=== PATIENT | male | born 1935 | race Caucasian/White ===

== ENCOUNTER 2020-05-23 17:46 | Inpatient (IN) ==
[2020-05-23] MEDS ORDERED: ASPIRIN 325 MG TABLET PO STA (18:22)
[2020-05-23] MEDS ORDERED: ONDANSETRON 4 MG/2 ML VIAL IV STA (18:22)
[2020-05-23] MEDS ORDERED: SODIUM CHLORIDE 0.9% 500 ML IV STA (18:22)
[2020-05-23 18:31] LABS: Basophils # 0.1 10*3/uL (0.0-0.2); Eosinophils # 0.3 10*3/uL (0.0-0.87); Eosinophils % 4.1 % (0.00-10.9); Hematocrit 35.7 VOL% (42.0-52.0); Immature Granulocytes % 0.5 %; Immature Granulocytes Absolute 0.04 #; Lymphocytes # 2.6 10*3/uL (1.4-4.0); Lymphocytes % 32.7 % (21.2-54.2); Mean Corpuscular HGB Conc 33.6 GM/DL (32-36); Mean Corpuscular Volume 89.7 FL (87-102); Mean Platelet Volume 9.4 FL (9.6-12.0); Monocytes % 11.2 % (1.7-12.7); Neutrophils % 50.5 % (38.7-73.9); Platelet Count 169 T/CUMM (130-400); Red Blood Count 3.98 MC/CUMM (3.8-5.5); Red Cell Distribution Width 12.8 % (9.3-17.3); White Blood Count 7.8 T/CUMM (4-12)
[2020-05-23 18:40] LABS: PT Patient Result 10.3 SECS (9.8-11.9)
[2020-05-23 18:57] LABS: Bilirubin,Urine Negative (Negative); Blood, Urine Negative (Negative); Glucose,Urine (UA) Negative (Negative); Ketones,Urine Negative (Negative); Mucus,Urine Occasional /LPF (Occasional); Nitrite,Urine Negative (Negative); Protein,Urine Negative; RBC,Urine 1 /HPF (0-4); Urine Appearance CLEAR (Clear); Urine Color Yellow (Yellow); Urine Specific Gravity 1.013 (1.001-1.035); Urine Urobilinogen < 2.0 EU/DL (0.2-1.0); WBC,Urine 1 /HPF (0-6)
[2020-05-23 19:06] LABS: Alanine Aminotransferase 19 U/L (16-61); Albumin 2.5 G/DL (3.4-5.0); Alkaline Phosphatase 82 U/L (45-117); Aspartate Amino Transferase 50 U/L (0-37); Blood Urea Nitrogen 22 MG/DL (7-18); Calcium 8.3 MG/DL (8.5-10.1); Carbon Dioxide 24 MMOL/L (21-32); Estimated Glom Filtration Rate 81 ML/MIN; Glucose 96 MG/DL (74-106); Osmolality,Calculated 275.8 MOS/KG (273-304); Potassium 5.3 MMOL/L (3.5-5.1); Sodium 137 MMOL/L (136-145)
[2020-05-23 19:17] LABS: Barbiturates Screen,Urine Negative (Negative); Benzodiazepines Screen,Urine Negative (Negative); Cannabinoid Screen,Urine Negative (Negative); Opiate Screen,Urine Negative (Negative); Phencyclidine Screen,Urine Negative (Negative)
[2020-05-23] MEDS ORDERED: ACETAMINOPHEN 325 MG TABLET PO PRN (22:42)
[2020-05-23] MEDS ORDERED: MORPHINE 4 MG/1 ML VIAL IV PRN (22:42)
[2020-05-23] MEDS ORDERED: ONDANSETRON 4 MG/2 ML VIAL IV PRN (22:42)
[2020-05-23] MEDS: ENOXAPARIN 40 MG/0.4 ML SYRINGE SUBCUT SCH (23:03)
[2020-05-23] MEDS: DOCUSATE SODIUM 100 MG CAPSULE PO SCH (23:03)
[2020-05-23] MEDS: SODIUM CHLORIDE 0.9% 1,000 ML IV SCH (23:03)
[2020-05-24] MEDS: SODIUM CHLORIDE 0.9% 1,000 ML IV SCH ×3 (05:53→22:02)
[2020-05-24 06:08] LABS: Basophils # 0.1 10*3/uL (0.0-0.2); Basophils % 1.2 % (0.0-0.8); Eosinophils # 0.4 10*3/uL (0.0-0.87); Eosinophils % 5.5 % (0.00-10.9); Hemoglobin 11.7 GM/DL (14.0-18.0); Immature Granulocytes % 0.4 %; Immature Granulocytes Absolute 0.03 #; Lymphocytes # 2.5 10*3/uL (1.4-4.0); Lymphocytes % 36.5 % (21.2-54.2); Mean Corpuscular HGB Conc 34.4 GM/DL (32-36); Mean Corpuscular Volume 90.2 FL (87-102); Mean Platelet Volume 9.4 FL (9.6-12.0); Monocytes % 10.2 % (1.7-12.7); Neutrophils % 46.2 % (38.7-73.9); Platelet Count 147 T/CUMM (130-400); Red Blood Count 3.77 MC/CUMM (3.8-5.5); Red Cell Distribution Width 12.9 % (9.3-17.3); White Blood Count 6.9 T/CUMM (4-12)
[2020-05-24 06:31] LABS: Albumin 2.8 G/DL (3.4-5.0); Bilirubin,Total 0.9 MG/DL (0.2-1.0); Calcium 9.8 MG/DL (8.5-10.1); Osmolality,Calculated 275.8 MOS/KG (273-304); Potassium 4.4 MMOL/L (3.5-5.1); Risk Ratio 8.48; Total Protein 6.2 G/DL (5.0-7.5); VLDL CHOLESTEROL 76.6 MG/DL
[2020-05-24 08:14] LABS: Folate 11.5 NG/ML (5.38-24.0)
[2020-05-24] MEDS ORDERED: PANTOPRAZOLE 40 MG VIAL IV SCH (09:00)
[2020-05-24] MEDS: EZETIMIBE 10 MG TABLET PO SCH (09:52)
[2020-05-24] MEDS: PANTOPRAZOLE 40 MG TABLET PO SCH (09:52)
[2020-05-24] MEDS: MELOXICAM 7.5 MG TABLET PO SCH (09:52)
[2020-05-24] MEDS: DOCUSATE SODIUM 100 MG CAPSULE PO SCH ×2 (09:52→21:18)
[2020-05-24] MEDS: SERTRALINE 50 MG TABLET PO SCH (09:53)
[2020-05-24] MEDS: ASPIRIN EC 81 MG TABLET PO SCH (09:53)
[2020-05-24] MEDS: CETIRIZINE 10 MG TABLET PO SCH (09:53)
[2020-05-24] MEDS: ROSUVASTATIN 20 MG TABLET PO SCH (09:54)
[2020-05-24] MEDS ORDERED: DEXAMETHASONE 10 MG/1 ML VIAL IV ONE (14:05)
[2020-05-24] MEDS ORDERED: DEXAMETHASONE 10 MG/1 ML VIAL IV SCH (21:00)
[2020-05-24] MEDS: DEXAMETHASONE INJ 40 MG in SODIUM CHLORIDE 0.9% 50 ML IV SCH (21:18)
[2020-05-24] MEDS: ENOXAPARIN 40 MG/0.4 ML SYRINGE SUBCUT SCH (22:02)
[2020-05-25 05:21] LABS: Basophils % 0.2 % (0.0-0.8); Hematocrit 34.3 VOL% (42.0-52.0); Hemoglobin 11.8 GM/DL (14.0-18.0); Immature Granulocytes % 0.7 %; Immature Granulocytes Absolute 0.04 #; Lymphocytes # 0.8 10*3/uL (1.4-4.0); Lymphocytes % 14.3 % (21.2-54.2); Mean Corpuscular HGB Conc 34.4 GM/DL (32-36); Mean Corpuscular Volume 87.9 FL (87-102); Mean Platelet Volume 9.6 FL (9.6-12.0); Monocytes % 0.9 % (1.7-12.7); Neutrophils % 83.9 % (38.7-73.9); Platelet Count 175 T/CUMM (130-400); Red Cell Distribution Width 12.5 % (9.3-17.3); White Blood Count 5.7 T/CUMM (4-12)
[2020-05-25 05:45] LABS: Calcium 9.8 MG/DL (8.5-10.1); Potassium 4.5 MMOL/L (3.5-5.1)
[2020-05-25] MEDS: SODIUM CHLORIDE 0.9% 1,000 ML IV SCH ×2 (05:51→13:57)
[2020-05-25] MEDS: ROSUVASTATIN 20 MG TABLET PO SCH (09:02)
[2020-05-25] MEDS: ASPIRIN EC 81 MG TABLET PO SCH (09:02)
[2020-05-25] MEDS: DOCUSATE SODIUM 100 MG CAPSULE PO SCH ×2 (09:02→20:57)
[2020-05-25] MEDS: EZETIMIBE 10 MG TABLET PO SCH (09:02)
[2020-05-25] MEDS: PANTOPRAZOLE 40 MG TABLET PO SCH (09:02)
[2020-05-25] MEDS: SERTRALINE 50 MG TABLET PO SCH (09:02)
[2020-05-25] MEDS: MELOXICAM 7.5 MG TABLET PO SCH (09:02)
[2020-05-25] MEDS: CETIRIZINE 10 MG TABLET PO SCH (09:03)
[2020-05-25] MEDS: DEXAMETHASONE INJ 40 MG in SODIUM CHLORIDE 0.9% 50 ML IV SCH ×2 (09:03→20:57)
[2020-05-25] MEDS: ENOXAPARIN 40 MG/0.4 ML SYRINGE SUBCUT SCH (21:59)
[2020-05-26] MEDS: SODIUM CHLORIDE 0.9% 1,000 ML IV SCH ×4 (00:30→23:48)
[2020-05-26] MEDS: ASPIRIN EC 81 MG TABLET PO SCH (08:39)
[2020-05-26] MEDS: MELOXICAM 7.5 MG TABLET PO SCH (08:39)
[2020-05-26] MEDS: DOCUSATE SODIUM 100 MG CAPSULE PO SCH ×2 (08:39→20:04)
[2020-05-26] MEDS: ROSUVASTATIN 20 MG TABLET PO SCH (08:39)
[2020-05-26] MEDS: EZETIMIBE 10 MG TABLET PO SCH (08:40)
[2020-05-26] MEDS: CETIRIZINE 10 MG TABLET PO SCH (08:40)
[2020-05-26] MEDS: PANTOPRAZOLE 40 MG TABLET PO SCH (08:41)
[2020-05-26] MEDS: SERTRALINE 50 MG TABLET PO SCH (08:41)
[2020-05-26] MEDS ORDERED: ERGOCALCIFEROL 50,000 UNIT CAPSULE PO SCH (11:00)
[2020-05-26] MEDS: POLYETHYLENE GLYCOL POWDER 17 GM PACK PO SCH (11:48)
[2020-05-26] MEDS: DEXAMETHASONE INJ 40 MG in SODIUM CHLORIDE 0.9% 50 ML IV SCH ×2 (11:49→20:04)
[2020-05-26] MEDS ORDERED: ALPRAZolam 0.25 MG TABLET PO PRN (21:44)
[2020-05-26] MEDS: ENOXAPARIN 40 MG/0.4 ML SYRINGE SUBCUT SCH (21:52)
[2020-05-27] MEDS ORDERED: MAGNESIUM HYDROXIDE SUSP 30 ML UDCUP PO ONE (07:39)
[2020-05-27] MEDS: PANTOPRAZOLE 40 MG TABLET PO SCH (08:32)
[2020-05-27] MEDS: ASPIRIN EC 81 MG TABLET PO SCH (08:32)
[2020-05-27] MEDS: POLYETHYLENE GLYCOL POWDER 17 GM PACK PO SCH (08:32)
[2020-05-27] MEDS: MELOXICAM 7.5 MG TABLET PO SCH (08:32)
[2020-05-27] MEDS: DOCUSATE SODIUM 100 MG CAPSULE PO SCH ×2 (08:32→20:21)
[2020-05-27] MEDS: CETIRIZINE 10 MG TABLET PO SCH (08:32)
[2020-05-27] MEDS: EZETIMIBE 10 MG TABLET PO SCH (08:33)
[2020-05-27] MEDS: SERTRALINE 50 MG TABLET PO SCH (08:33)
[2020-05-27] MEDS: ROSUVASTATIN 20 MG TABLET PO SCH (08:36)
[2020-05-27] MEDS: SODIUM CHLORIDE 0.9% 1,000 ML IV SCH ×2 (08:36→16:02)
[2020-05-27] MEDS: DEXAMETHASONE 4 MG TABLET PO SCH ×2 (09:04→20:21)
[2020-05-27] MEDS: ENOXAPARIN 40 MG/0.4 ML SYRINGE SUBCUT SCH (20:19)
[2020-05-27 22:27] VITALS: BP 129/65
== END 2020-05-27 20:30 | disposition hospice, home (50) | DRG 54 ==
LOC: EDUNIT# → EDBD → N.ED 17:46 → N.EDINP 19:50 → N.TELES 22:49
PROVIDERS: ADMIT Family Medicine; ATTEND Family Medicine